=== PATIENT | male | born 1995 | race Caucasian/White ===

== ENCOUNTER 2019-09-11 14:15 | Emergency (ER) | payer OTHER ==
[~2019-09-11] VITALS: Ht 193 cm; Wt 152.9 kg
[2019-09-11 14:57] LABS: ABSOLUTE NEUTROPHILS 5.9 thou/uL (1.4-8.2); BASOPHILS 0.8 % (0.0-2.0); EOSINOPHILS 0.5 % (0.0-3.0); HEMATOCRIT 51.3 % (42.0-52.0); HEMOGLOBIN 17.1 gm/dL (14.0-18.0); LYMPHOCYTES 23.2 % (24.0-44.0); MCH 28.8 pg (26.0-34.0); MCHC 33.4 g/dL (28.0-37.0); MCV 86.4 fL (80.0-100.0); MONOCYTES 9.4 % (1.0-8.0); PLATELET COUNT 278 thou/uL (150-400); POLYS 66.1 % (36.0-66.0); RBC 5.94 mil/uL (4.50-6.00); RDW 13.2 % (10.5-14.5); WBC 8.9 thou/uL (4.0-11.0)
[2019-09-11 15:04] LABS: ANION GAP 8 mmol/L (7-16); BUN 12 mg/dL (7-18); CALCIUM 9.3 mg/dL (8.5-10.1); CHLORIDE 104 mmol/L (98-107); CO2 26 mmol/L (21-32); GLUCOSE 103 mg/dL (74-106); SODIUM 138 mmol/L (136-145)
[2019-09-11 15:14] LABS: ALBUMIN 3.5 g/dL (3.4-5.0); SGOT 24 U/L (15-37); SGPT 32 U/L (30-65); TOTAL BILIRUBIN 0.8 mg/dL (<0.1-1.0); TOTAL PROTEIN 7.4 g/dL (6.4-8.2); TROPONIN-I <0.06 ng/mL (<0.06)
[2019-09-11 17:34] VITALS: BP 140/82
--- NOTE | 2019-09-13 12:14 | EKG ---
[place] [address] [facility] [place] [address] ELECTROCARDIOGRAM REPORT Name: QUANGELVA Room #: [facility] Devine#: [id number] Admission: 09/11/19 Attend Phys: Discharge: 09/11/19 Date of : [birth year] Report #: [id number] THIS REPORT FOR: //name// [facility] ED Test Date: 2019-09-11 Test Time: 14:26:02 Pat Name: ELVA DEL RIO Department: Room: Gender: M Patient Transport Orderly: SUDHA : 1995 Requested By: John Cruz Order Number: [id number] MD: Salvador Nguyen Measurements Intervals [place] Rate: 105 P: 30 AR: 142 QRS: 89 QRSD: 96 T: 13 QT: 314 QTc: 416 Interpretive Statements Sinus tachycardia Probable left atrial enlargement Borderline low voltage, extremity leads No previous ECG available for comparison Electronically Signed On 09-13-2019 12:14:23 SCIENCE TUT[employer] by Salvador Nguyen [email or web address] <ELECTRONICALLY SIGNED> By: Salvador Nguyen MD 09/13/19 1214 1426 1426 Salvador Nguyen MD /EPI
== END 2019-09-11 17:35 | disposition home or self-care (01) ==
LOC: ER 14:15
PROVIDERS: Physician Assistant
DX: R53.1 Weakness (principal); R42 Dizziness and giddiness